=== PATIENT | female | born 1975 | race Caucasian/White ===

== ENCOUNTER 2024-03-17 18:43 | Emergency (ER) | payer SELFPAY ==
[2024-03-17] MEDS ORDERED: predniSONE 20 MG TAB ONE (19:40)
[2024-03-17] MEDS ORDERED: Ibuprofen 200 MG TAB ONE (19:40)
== END 2024-03-17 20:52 | disposition home or self-care (01) ==
LOC: ERS 18:43
DX: J02.9 Acute pharyngitis, unspecified (principal); I10 Essential (primary) hypertension
CPT/HCPCS: 87081; 87428; 87430; 99283; J7512

== ENCOUNTER 2024-10-21 07:24 | Emergency (ER) | payer SELFPAY ==
[2024-10-21] MEDS ORDERED: Ketorolac Tromethamine 30 MG (1 mL) VIAL ONE (07:49)
[2024-10-21] MEDS ORDERED: Dexamethasone 10 MG/ML VIAL ONE (07:50)
== END 2024-10-21 08:22 | disposition home or self-care (01) ==
LOC: ERS 07:24
DX: J01.90 Acute sinusitis, unspecified (principal); I10 Essential (primary) hypertension; E78.00 Pure hypercholesterolemia, unspecified; Z79.899 Other long term (current) drug therapy
CPT/HCPCS: 70450; 96372; J1100; J1885